=== PATIENT | female | born 2000 | race Caucasian/White ===

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

== ENCOUNTER 2022-01-27 09:37 | Emergency (ER) | payer BC, MEDICAID, SELFPAY ==
[~2022-01-27] VITALS: Ht 167.6 cm; Wt 55.7 kg
[2022-01-27 09:37] VITALS: BP 114/64
[2022-01-27 10:28] LABS: RSV AMPLIFICATION NEGATIVE (NEGATIVE)
[2022-01-27] MEDS ORDERED: AMOX875T2 PO (11:33)
[2022-01-27] MEDS ORDERED: PSEU120T3 PO (11:38)
== END 2022-01-27 11:49 | disposition home or self-care (01) ==
LOC: M ED 09:37
DX: J01.90 Acute sinusitis, unspecified (principal); J02.9 Acute pharyngitis, unspecified; Z11.52 Encounter for screening for COVID-19

== ENCOUNTER 2022-09-27 08:37 | Emergency (ER) | payer MEDICAID, SELFPAY ==
[~2022-09-27] VITALS: Ht 165.1 cm; Wt 55.6 kg
[~2022-09-27 08:37] MED LIST changes: +AMOX875T2 PO; +PSEU120T3 PO
[2022-09-27] MEDS ORDERED: NS 1,000 ML IV ONE (09:15)
[2022-09-27] MEDS ORDERED: ONDANSETRON 4MG 2ML VIAL IV ONE (09:15)
[2022-09-27 09:53] LABS: BASO % 0.2 % (0.0-1.0); EOS % 0.5 % (0.0-3.0); HEMATOCRIT 41.4 % (36.0-47.0); HEMOGLOBIN 13.8 g/dl (12.0-15.5); LYMPH # 0.3 10^3/uL (1.5-5.0); LYMPH % 4.4 % (24.0-44.0); MEAN CORPUSCULAR HEMOGLOBIN 31.7 pg (27.0-33.0); MEAN CORPUSCULAR HGB CONC 33.3 g/dl (32.0-36.5); MONO # 0.4 10^3/uL (0.0-0.8); MONO % 7.1 % (2.0-8.0); NEUTROPHILS # 5.4 10^3/uL (1.5-8.5); NEUTROPHILS % 87.5 % (36.0-66.0); PLATELET COUNT, AUTOMATED 180 10^3/uL (150-450); RED BLOOD COUNT 4.36 10^6/uL (4.00-5.40); WHITE BLOOD COUNT 6.2 10^3/uL (4.0-10.0)
[2022-09-27 10:17] LABS: LIPASE 34 U/L (12-53)
[2022-09-27 10:19] LABS: ALBUMIN 4.4 G/DL (3.2-5.2); ALKALINE PHOSPHATASE 48 U/L (46-116); ALT/SGPT 16 U/L (7.0-40); AST/SGOT 16 U/L (<34); BILIRUBIN,DIRECT 0.2 MG/DL (<0.4); BILIRUBIN,TOTAL 0.5 MG/DL (0.3-1.2); BLOOD UREA NITROGEN 8 MG/DL (9-23); CARBON DIOXIDE LEVEL 28 MMOL/L (20-31); CHLORIDE LEVEL 104 MMOL/L (98-107); CREATININE FOR GFR 0.84 MG/DL (0.55-1.30); GLUCOSE, FASTING 100 MG/DL (60-100); SODIUM LEVEL 140 MMOL/L (136-145); TOTAL PROTEIN 7.1 G/DL (5.7-8.2)
[2022-09-27 10:34] LABS: HCG, SERUM QUALITATIVE NEGATIVE (NEGATIVE)
[2022-09-27 10:38] LABS: APPEARANCE, URINE CLEAR (CLEAR); BACTERIA, URINE AUTO NEGATIVE (NEGATIVE); BILIRUBIN, URINE AUTO NEGATIVE (NEGATIVE); BLOOD, URINE BLOOD NEGATIVE (NEGATIVE); COLOR, URINE YELLOW (YELLOW); GLUCOSE, URINE (UA) AUTO NEGATIVE (NEGATIVE); KETONE, URINE AUTO NEGATIVE (NEGATIVE); LEUKOCYTE ESTERASE, URINE AUTO NEGATIVE (NEGATIVE); NITRITE, URINE AUTO NEGATIVE (NEGATIVE); PROTEIN, URINE AUTO NEGATIVE (NEGATIVE); RBC, URINE AUTO 0 /HPF (0-3); SPECIFIC GRAVITY URINE AUTO 1.012 (1.002-1.035); SQUAMOUS EPITHELIAL CELL UR AU 1 /HPF (0-6); UROBILINOGEN, URINE AUTO 0.2 mg/dL (0.0-2.0); WBC, URINE AUTO 0 /HPF (0-3)
[2022-09-27] MEDS ORDERED: ONDA4TAB6 PO (12:32)
[2022-09-27 12:35] VITALS: BP 121/62
== END 2022-09-27 12:50 | disposition home or self-care (01) ==
LOC: M ED 08:37
DX: N93.8 Other specified abnormal uterine and vaginal bleeding (principal); F12.90 Cannabis use, unspecified, uncomplicated
CPT/HCPCS: 76830; 76856; 80048; 80076; 81001; 83690; 84703; 85025; 86850; 86900; 86901; 93976; 96374; 99284; J2405

== ENCOUNTER → 2022-10-25 | Outpatient (REF) | payer SELFPAY, BC ==
[2022-10-26 14:30] LABS: APPEARANCE, URINE TURBID (CLEAR); BACTERIA, URINE AUTO 1+ (NEGATIVE); BILIRUBIN, URINE AUTO NEGATIVE (NEGATIVE); BLOOD, URINE BLOOD NEGATIVE (NEGATIVE); COLOR, URINE AMBER (YELLOW); GLUCOSE, URINE (UA) AUTO NEGATIVE (NEGATIVE); KETONE, URINE AUTO NEGATIVE (NEGATIVE); LEUKOCYTE ESTERASE, URINE AUTO NEGATIVE (NEGATIVE); MUCUS, URINE MODERATE (NEGATIVE); NITRITE, URINE AUTO NEGATIVE (NEGATIVE); PROTEIN, URINE AUTO 2+ mg/dL (NEGATIVE); RBC, URINE AUTO 0 /HPF (0-3); SPECIFIC GRAVITY URINE AUTO 1.027 (1.002-1.035); SQUAMOUS EPITHELIAL CELL UR AU 2 /HPF (0-6); UROBILINOGEN, URINE AUTO 0.2 mg/dL (0.0-2.0); WBC, URINE AUTO 2 /HPF (0-3)
== END ==
LOC: M LAB REF 13:27
PROVIDERS: ATTEND Specialist
DX: R11.10 Vomiting, unspecified (principal)

== ENCOUNTER 2023-11-15 09:44 | Emergency (ER) | payer BC, SELFPAY ==
[~2023-11-15] VITALS: Ht 170.2 cm; Wt 58.1 kg
[~2023-11-15 09:44] MED LIST changes: +ONDA-282 PO; -ONDA4TAB6 PO
[2023-11-15 09:46] VITALS: BP 111/68; TEMP 98.3; O2SAT 98
== END 2023-11-15 12:28 | disposition home or self-care (01) ==
LOC: M ED 09:44
DX: J02.9 Acute pharyngitis, unspecified (principal); F12.10 Cannabis abuse, uncomplicated

== ENCOUNTER 2025-04-01 10:37 | Emergency (ER) | payer BC ==
[~2025-04-01] VITALS: Ht 162.6 cm; Wt 64.5 kg
[2025-04-01 11:39] LABS: KETONE, URINE AUTO RFX NEGATIVE (NEGATIVE); LEUKOCYTE ESTERASE UR AUTO RFX NEGATIVE (NEGATIVE); NITRITE, URINE AUTO RFX NEGATIVE (NEGATIVE); RBC, URINE AUTO RFX 0 /HPF (0-3); SQUAM EPITHELIAL CELL UR AURFX 5 /HPF (0-6); WBC, URINE AUTO RFX 0 /HPF (0-3)
[2025-04-01 11:40] LABS: URINE PREG TEST POSITIVE (NEGATIVE)
[2025-04-01 12:01] LABS: BASO # 0.0 10^3/uL (0.0-0.2); BASO % 0.1 % (0.0-1.0); EOS # 0.0 10^3/uL (0.0-0.5); EOS % 0.4 % (0.0-3.0); LYMPH # 2.8 10^3/uL (1.5-5.0); LYMPH % 34.3 % (24.0-44.0); MONO # 0.7 10^3/uL (0.0-0.8); MONO % 8.1 % (2.0-8.0); NEUTROPHILS # 4.6 10^3/uL (1.5-8.5); NEUTROPHILS % 56.9 % (36.0-66.0); PLATELET COUNT, AUTOMATED 250 10^3/uL (150-450)
[2025-04-01 12:40] LABS: ALT/SGPT 34 U/L (7.0-40); AST/SGOT 26 U/L (<34); CALCIUM LEVEL 8.7 MG/DL (8.5-10.1); CARBON DIOXIDE LEVEL 27 MMOL/L (20-31); CHLORIDE LEVEL 105 MMOL/L (98-107); CREATININE FOR GFR 0.72 MG/DL (0.55-1.30); GLOMERULAR FILTRATION RATE > 90.0 (>60); POTASSIUM SERUM 4.0 MMOL/L (3.5-5.1); SODIUM LEVEL 140 MMOL/L (136-145)
[2025-04-01 15:15] VITALS: BP 123/80; TEMP 97.6; O2SAT 97
== END 2025-04-01 15:28 | disposition home or self-care (01) ==
LOC: M ED 10:37
DX: O20.0 Threatened abortion (principal); Z3A.01 Less than 8 weeks gestation of pregnancy

== ENCOUNTER → 2025-04-03 | Outpatient (CLI) | payer BC | LOC: M LAB 14:22 | PROVIDERS: ATTEND Nurse Practitioner Family | DX: O26.899 Other specified pregnancy related conditions, unspecified trimester (principal); R10.20 Pelvic and perineal pain unspecified side; Z3A.00 Weeks of gestation of pregnancy not specified ==